=== PATIENT | male | born 1955 | race Caucasian/White ===

== ENCOUNTER 2021-02-07 11:15 | Inpatient (IN) | payer MEDICARE ==
[2021-02-07] VITALS (17 sets, daily range): BP systolic 73–96; BP diastolic 49–74
[~2021-02-07] VITALS: Ht 170.2 cm; Wt 89.4 kg
--- NOTE | ~2021-02-07 | HEMODYNAMI ---
PATIENT:COSTA ADAMS MEDICAL RECORD: [id number] : 57 LOCATION:[facility] [address] [id number] ADMISSION DATE: 02/07/21 Generatedon:110:23 Patient name: COSTA ADAMS Patient #: [id number] SSN: : 1955 Date of study: 02/11/2021 Page: Of Hemodynamic Procedure Report Patient Data Patient Demographics Procedure consent was obtained First Name: COSTA Gender: Male Last Name: ANGIE : 1955 Patient #: [id number] Age: 65 year(s) Race: Unknown Additional ID: [id number] Contact details Address: [address] [place] [address] State: [place] City: [place] Zip code: [address] Past Medical History History of disease Date Diagnosis Comments CAD Allergies: No known allergies Admission Admission Data Admission Date: 02/07/2021 Admission Time: 16:10 [facility] Lab Results Lab Result Date: 02/11/2021 Lab Result Time: 0:00 Biochemistry Name Units Result Min Max BUN mg/dl 12 --(-*--)-- 7 18 Creatinine mg/dl 1 --(--*-)-- 0.6 1.3 eGFR ml/min 79.80531 *-(----)-- 90 120 NONAFRICAN CBC Name Units Result Min Max Hematocrit % 34 *-(----)-- 42 54 Hemoglobin g/dl 11.6 *-(----)-- 13.5 17.5 Procedure Procedure Types Cath Procedure Diagnostic Procedure LHC LHC w/Coronaries w/Grafts Sedation Charges Moderate Sedation 10-24 minutes Procedure Description Procedure Date Procedure Date: 02/11/2021 Procedure Start Time: 10:07 Procedure End Time: 10:21 Procedure Staff Name Function Barrington Kwan MD Performing Physician Debbie Wilson RT Scrub Lou Ferrell RT Monitor Salima Galan RN Nurse Procedure Data Cath Procedure Fluoroscopy Diagnostic fluoroscopy Total fluoroscopy Time: 1.8 time: 1.8 min min Diagnostic fluoroscopy Total fluoroscopy dose: 405 dose: 405 mGy mGy Contrast Material Contrast Material Type Amount (ml) Isovue 300 59 Entry Location Entry Primary Successful Side Size Upsize Upsize Entry Closure Succes sful Closure Location (Fr) 1 (Fr) 2 (Fr) Remarks Device Remarks Femoral Left 5 Fr Exoseal artery Estimated blood loss: 10 ml Diagnostic catheters Device Type Used For End Catheter Placement MULTIPACK JL 4.0 5Fr Procedure catheter MULTIPACK 3DRC 5Fr Procedure catheter MULTIPACK Pigtail 5 Fr Procedure catheter Procedure Complications No complications Procedure Medications Medication Administration Route Dosage Oxygen etCO2 Nasal cannula 2 l/min Heparin Flush Bag added to field 2 bags (1000units/500ml NS) Lidocaine 2% added to field 20 0.9% NaCl I.V. 100 ml/hr Fentanyl I.V. 50 mcg Versed I.V. 1 mg Fentanyl I.V. 50 mcg Versed I.V. 1 mg Hemodynamics Rest HGB: 11.6 (g/dl) Heart Rate: 76 (bpm) Pressure Samples Time Site Value (mmHg) Purpose Heart Use Rate(bpm) 10:14 LV 110/21,10 Snapshot 108 10:14 LV 110/21,10 Snapshot 106 10:14 LV 117/18,10 Snapshot 83 Gradients Valve Time Site Site Mean SEP/DFP Peak To Heart Use 1 2 (mmHg) (sec/min) Peak Rate (mmHg) (bpm) Aortic 10:14 LV AO 85 Snapshots Pre Cath Intra NCS Post Cath Vital Signs Time Heart Resp SPO2 etCO2 NIBP Rhythm Pain Sedation Rate (ipm) (%) (mmHg) (mmHg) Status Level (bpm) 9:52:20 76 18 100 113/68(90) NSR 0 (11) 10(A) , No pain 9:56:29 78 14 98 106/60(82) NSR 0 (11) 10(A) , No pain 10:00:37 77 12 98 104/56(84) NSR 0 (11) 10(A) , No pain 10:04:43 77 11 98 32.1 116/61(83) NSR 0 (11) 9(A) , No pain 10:08:45 77 15 99 29.8 106/60(80) NSR 0 (11) 9(A) , No pain 10:12:53 77 13 96 19.4 113/57(70) NSR 0 (11) 9(A) , No pain 10:17:52 75 10 98 28.4 Measuring NSR 0 (11) 9(A) , No pain 10:17:58 77 10 98 31.4 105/55(84) NSR 0 (11) 9(A) , No pain 10:22:08 74 10 99 23.1 104/52(65) NSR 0 (11) 9(A) , No pain Medications Time Medication Route Dose Verified Delivered Reason Notes Eff ectiveness by by 9:51:58 Oxygen etCO2 2 Salima Salima for low 02 Nasal l/min Adama Galan sats cannula RN RN 9:52:05 Heparin Flush added 2 Salima Salima used for Bag to bags Adama Galan procedure (1000units/500ml RN RN NS) 9:52:13 Lidocaine 2% added 20ml Salima Barrington for local to vial [facility] Duncan Galan anesthetic field DAREN BERRY 9:52:24 0.9% NaCl I.V. 100 Salima Salima Per ml/hr Adama Galan, physician RN RN 10:02:30 Fentanyl I.V. 50 Salima Salima for mcg Adama Galan, sedation RN RN 10:02:35 Versed I.V. 1 mg Salima Salima for Galan, Galan, sedation RN RN 10:07:41 Fentanyl I.V. 50 Salima Salima for mcg Adama, Galan, sedation RN RN 10:07:45 Versed I.V. 1 mg Salima Salima for Adama, Galan, sedation RN ragman Log Time Note 9:31:21 Informed consent obtained and on chart 9:31:40 Lou Ferrell RT(R) sent for patient. Start room use. 9:31:42 Procedure Status Urgent Heart Cath (IP). 9:31:43 Time tracking: Regular hours (M-F 7:00 - 5:00) 9:31:46 Plan of Care:Hemodynamics will remain stable., Cardiac rhythm will remain stable., Comfort level will be maintained., Respiratory function will remain adequate., Patient/ family verbilizes understanding of procedure., Procedure tolerated without complication., Recovers from procedure without complications.. 9:51:04 Patient received from ICU to CCL 2 Alert and oriented. Tansferred to table in Supine position. 9:51:05 Warm blankets applied, and flavia hugger turned on for patient comfort. 9:51:05 Correct patient and procedure confirmed by team. 9:51:06 ECG and BP/O2 sat monitors applied to patient. 9:51:07 Vital chart was started 9:51:08 Baseline sample Acquired. 9:51:11 Rhythm: sinus rhythm 9:51:13 Full Disclosure recording started 9:51:19 H&P Date Dictated: 02/10/2021 ER History on chart.. 9:51:22 Family unavailable. 9:51:23 Pre-procedure instructions explained to patient. 9:51:23 Pre-op teaching completed and patient verbalized understanding. 9:51:27 Patient NPO since Midnight. 9:51:34 Patient allergic to No known allergies 9:51:36 Is the patient allergic to Iodine/contrast media? No. 9:51:37 Is patient on blood thinner?No 9:51:58 Oxygen 2 l/min etCO2 Nasal cannula was administered by Salima Galan RN; for low 02 sats; Verbal order read back and verified. 9:52:03 PT. WAS ON A HEPARIN DRIP. 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 9:52:06 Patient diabetic? Yes. 9:52:09 If diabetic: On Metformin? Yes 9:52:13 Lidocaine 2% 20ml vial added to field was administered by Barrington Kwan MD; for local anesthetic; Verbal order read back and verified. 9:52:13 Previous problem with sedation/anesthesia? No ? 9:52:14 Snore? Yes 9:52:15 Sleep apnea? Yes 9:52:16 Deviated septum? No 9:52:17 Opens mouth fully? Yes 9:52:19 Sticks out tongue? Yes 9:52:21 Airway obstruction? Yes COPD 9:52:24 0.9% NaCl 100 ml/hr I.V. was administered by Salima Galan RN; Per physician; Verbal order read back and verified. 9:52:25 Dentures? No ? 9:52:28 Pre procedure: left dorsailis pedis pulse 1+ Palpable, but thready & weak; easily obliterated 9:52:46 LEFT LEG PREPPED DUE TO URINARY CATHETER SET UP HIGH ON RIGHT GROIN 9:52:48 Patient pain scale 0/10 ?. 9:52:52 IV patent on arrival in left antecubital with 0.9% NaCl at O. 9:53:31 Lab Result : BUN 12 mg/dl 9:53:31 Lab Result : Creatinine 1 mg/dl 9:53:31 Lab Result : eGFR NONAFRICAN 79.02385 ml/min 9:53:31 Lab Result : Hemoglobin 11.6 g/dl 9:53:31 Lab Result : Hematocrit 34 % 9:53:34 Lab results completed and on chart. 9:53:39 Left groin area was prepped with chlora-prep and draped in sterile fashion 9:53:40 Alarms reviewed by R. N. 9:53:40 Sharps counted by scrub and verified by R.N. 9:53:42 Use device set Femoral Dx 9:53:43 ACIST Syringe (68461) opened to sterile field. 9:53:43 Bag Decanter (2002S) opened to sterile field. 9:54:27 ACIST Hand Control (37356) opened to sterile field. 9:54:28 ACIST Manifold (82441) opened to sterile field. 9:54:29 Tegaderm 4 x 4 (1626W) opened to sterile field. 9:56:55 Medline Cath Pack ([id number]) opened to sterile field. 9:56:56 DIAGNOSTIC Multipack 5Fr catheter set ([id number]) opened to sterile field. 9:56:56 SHEATH 5FR Fall Branch ([id number]) opened to sterile field. 9:56:57 EMERALD Guide Wire (538-606) opened to sterile field. 10:01:25 --------ALL STOP TIME OUT------ ::26 Final Timeout: patient, procedure, and site verified with staff and physician. All members of the team are in agreement. 10:01:28 Left groin site verified by team. 10:01:31 Fire Safety Assessment: A--An alcohol-based skin anteseptic being used preoperatively., C--Open oxygen or nitrous oxide is being used., D--An ESU, laser, or fiber-optic light is being used. 10:01:33 Physical assessment completed. ASA score P 3 - A patient with severe systemic disease as per Barrington Kwan MD. 10:01:43 2) 60-89 Mildly reduced kidney function, and other findings (as for stage 1) point to kidney disease. 10:01:44 Maximum allowable contrast dose (3.7 X eGFR X 0.75)222 ml. 10:01:47 Sedation plan: IV Moderate Sedation Medication:Versed, Fentanyl 10:02:30 Fentanyl 50 mcg I.V. was administered by Salima Galan RN; for sedation; Verbal order read back and verified. 10:02:35 Versed 1 mg I.V. was administered by Salima Galan RN; for sedation; Verbal order read back and verified. 10:06:26 Procedure started. 10:07:03 Local anesthetic to left femerol artery with Lidocaine 2% by Barrington Kwan MD.INITIAL ACCESS ONLY 10:07:41 Fentanyl 50 mcg I.V. was administered by Salima Galan RN; for sedation; Verbal order read back and verified. 10:07:45 Versed 1 mg I.V. was administered by Salima Galan RN; for sedation; Verbal order read back and verified. 10:08:00 A 5 Fr sheath was inserted into the Left Femoral artery 10:08:42 Zero performed for pressure channel P1 10:08:45 Zero performed for pressure channel P1 10:08:48 Zero performed for pressure channel P1 10:08:50 Zero performed for pressure channel P1 10:08:56 A MULTIPACK JL 4.0 5Fr catheter was advanced over the wire and used for Procedure. 10:09:07 Zero performed for pressure channel P1 10:10:14 LCA angiography performed. 10:10:19 Catheter removed. 10:10:25 A MULTIPACK 3DRC 5Fr catheter was advanced over the wire and used for Procedure. 10:13:10 RCA angiography performed. 10:13:12 Catheter removed. 10:13:13 ACCDominant side:Right 10:13:37 A MULTIPACK Pigtail 5 Fr catheter was advanced over the wire and used for Procedure. 10:14:11 LV gram done using ALVES 10:14:13 Injector settings: Ml/sec: 10, Volume: 20, 10:14:33 LV hemodynamics recorded. 10:14:39 EF : 55 % 10:14:40 Catheter removed. 10:14:41 EXOSEAL 5Fr (EX500) opened to sterile field. 10:14:55 Sheath removed intact; hemostasis achieved with Exoseal to the Left Femoral artery. 10:15:41 Procedure ended.(Physican Out) 10:16:05 Fluoroscopy time 01.80 minutes. 10:16:08 Fluoroscopy dose: 405 mGy 10:16:08 Flurop Dose total: 405 10:16:12 Dose Area Product 32924 mGy/cm. 10:16:23 Contrast amount:Isovue 300 59ml. 10:19:02 Maximum allowable dose exceeded? No. 10:19:08 Sharps counted by scrub and verified by R.N. 10:19:14 Post-op/insertion site Left Femoral artery dressed using a 4 x 4 and Tegaderm. 10:19:23 Post-procedure physical assessment completed. ASA score P 3 - A patient with severe systemic disease as per Barrington Kwan MD. 10:19:30 Post procedure rhythm: sinus rhythm 10:19:34 Estimated blood loss: 10 ml 10:19:35 Post procedure instruction explained to patient.Patient verbalizes understanding. 10:19:36 Patient needs reinforcement of post procedure teaching. 10:19:57 Procedure type changed to Cath procedure, Diagnostic procedure, LHC, LHC w/Coronaries w/Grafts, Sedation Charges, Moderate Sedation 10-24 minutes 10:21:16 Procedure and supply charges have been captured, reviewed, submitted and are correct. 10:21:19 Procedure Complication : No complications 10:21:21 Vital chart was stopped 10:21:32 [facility] Findings: MVD- CABG consult 10:21:34 Operative report dictated upon procedure completion. 10:21:34 See physician's report for complete and final results. 10:21:37 Report given to ICU. 10:21:40 Patient transfered to ICU with Bed. 10:21:42 Procedure ended. 10:21:42 Full Disclosure recording stopped 10:21:48 End room use (Document Last) 10:23:07 Procedure ended.(Physican Out) Device Usage Item Name Manufacture Quantity Catalog Hospital Part Current Minimal L ot# / Number Charge Number Stock Stock Serial# Code ACIST Acist 1 30488 537018 [id number] 20 Syringe Medical (66611) Systems Inc Bag Microtek 1 2001S 887680 95886 868134 5 Decanter Medical Inc. () ACIST Hand Acist 1 88201 676818 970458 128828 5 Control Medical (85719) Systems Inc ACIST Acist 1 97549 134705 051193 089826 5 Manifold Medical (99843) Systems Inc Tegaderm 4 3M 1 1626W 636766 323734 301141 5 x 4 (1626W) Medline Medline 1 [id number] 563039 92328 907728 5 Cath Pack ([id number]) DIAGNOSTIC Cardinal 1 AN4199 192274 11603 116034 30 Multipack CoolIT Systems 5Fr catheter set (KN2909) SHEATH 5FR Terumo 1 DAS095 911468 317080 745834 5 Fall Branch (TNR657) EMERALD Cardinal 1 502-455 313054 531010 606634 5 Guide Wire [facility] (502455) MULTIPACK Cardinal 1 140240 5 JL 4.0 5Fr Health catheter MULTIPACK Cardinal 1 [id number] 5 3DRC 5Fr Health catheter MULTIPACK Cardinal 1 519224 5 Pigtail 5 Health Fr catheter EXOSEAL 5Fr Cardinal 1 EX500 580694 213242 244068 10 (EX500) Health Signature Audit [place] Stage Time Signature Unsigned Intra-Procedure 02/11/2021 Lou Ferrell 10:22:42 AM RT(R) Intra-Procedure 02/11/2021 Salima Galan, 10:23:07 AM RN Intra-Procedure 02/11/2021 Barrington Soriano 10:23:34 AM Duncan BERRY Signatures Performing Physician : Signature : Barrington Kwan MD Date : Time : Monitor : Lou Ferrell Signature : RT Date : Time : Nurse : Salima Galan, Signature : RN Date : Time : [place] [address] [place] [address]
--- NOTE | ~2021-02-07 | HEMODYNAMI ---
PATIENT:COSTA ADAMS MEDICAL RECORD: [id number] : 57 LOCATION:[facility] [address] [place], [place] [address]T# [id number] ADMISSION DATE: 02/07/21 Generatedon:111:57 Patient name: COSTA ADAMS Patient #: [id number] SSN: : 1955 Date of study: 02/13/2021 Page: Of Hemodynamic Procedure Report Patient Data Patient Demographics Procedure consent was obtained First Name: COSTA Gender: Male Last Name: ANGIE : 1955 Patient #: [id number] Age: 65 year(s) Race: Unknown Additional ID: [id number] Contact details Address: [address] [place] [address] State: [place] City: [place] Zip code: [address] Past Medical History History of disease Date Diagnosis Comments CAD Allergies: No known allergies Admission Admission Data Admission Date: 02/07/2021 Admission Time: 16:10 [facility] Height (in.): 67 BSA: 2.01 (m2) Height (cm.): 170.18 BMI: 30.85 (kg/m2) Weight (lbs.): 197 Weight (kg.): 89.36 Lab Results Lab Result Date: 02/11/2021 Lab Result Time: 0:00 Biochemistry Name Units Result Min Max BUN mg/dl 12 --(-*--)-- 7 18 Creatinine mg/dl 1 --(--*-)-- 0.6 1.3 eGFR ml/min 79.71008 *-(----)-- 90 120 NONAFRICAN CBC Name Units Result Min Max Hematocrit % 34 *-(----)-- 42 54 Hemoglobin g/dl 11.6 *-(----)-- 13.5 17.5 Procedure Procedure Types Cath Procedure Peripheral Cath Diagnostic Procedure 4-Vessel 4 Vessel Carotid Arterio Arch Procedure Description Procedure Date Procedure Date: 02/13/2021 Procedure Start Time: 11:15 Procedure Staff Name Function Duncan Chatman MD Performing Physician Krupa Weldon RT Chemical Maker Jacki Barrios RN Nurse Savage Le RT Scrub Ashley Calloway RN Nurse Procedure Data Cath Procedure Fluoroscopy Diagnostic fluoroscopy Total fluoroscopy Time: 1.8 time: 1.8 min min Diagnostic fluoroscopy Total fluoroscopy dose: 130 dose: 130 mGy mGy Contrast Material Contrast Material Type Amount (ml) Isovue 300 130 Entry Location Entry Primary Successful Side Size Upsize Upsize Entry Closure Succ essful Closure Location (Fr) 1 (Fr) 2 (Fr) Remarks Device Remarks Femoral Right 5 Fr artery Femoral Angio-VIP artery 6Fr Diagnostic catheters Device Type Used For End Catheter Placement Merit ULTRA BOLUS FLUSH 5Fr 90CM catheter ([id number]) Merit UHF Pigtail VESSEL SIZING 5Fr 65CM catheter ([id number]) Procedure Medications Medication Administration Route Dosage Heparin Flush Bag added to field 3 bags (1000units/500ml NS) Lidocaine 1% added to field 20 Versed I.V. 1 mg Fentanyl I.V. 50 mcg Heparin Bolus I.V. 5000 units Hemodynamics Rest BSA: 2.01 (m2) HGB: 11.6 (g/dl) O2 Consumption: Estimated: 252.93 (ml/min) O2 Co nsumption indexed: Estimated:125.84 (ml/min/m) Heart Rate: 94 (bpm) Snapshots Pre Cath Intra NCS Post Cath Vital Signs Time Heart Resp SPO2 etCO2 NIBP (mmHg) Rhythm Pain Sedation Rate (ipm) (%) (mmHg) Status Level (bpm) 10:44:07 97 21 100 18.8 95/62(73) NSR 0 (11) 10(A) , No pain 10:48:13 128 15 99 0 75/62(65) NSR 0 (11) 10(A) , No pain 10:52:25 93 24 99 22.6 105/63(86) NSR 0 (11) 10(A) , No pain 10:56:31 86 23 98 22.6 99/60(77) NSR 0 (11) 10(A) , No pain 11:00:33 88 23 98 22.6 104/56(74) NSR 0 (11) 10(A) , No pain 11:04:34 89 20 99 17.3 92/71(89) NSR 0 (11) 10(A) , No pain 11:09:33 102 22 98 24.1 Measuring NSR 0 (11) 10(A) , No pain 11:09:51 97 23 98 24.1 98/66(80) NSR 0 (11) 10(A) , No pain 11:13:59 94 13 99 19.6 76/45(66) NSR 0 (11) 10(A) , No pain 11:18:59 91 23 98 21.8 Measuring NSR 0 (11) 10(A) , No pain 11:19:54 91 23 98 22.6 85/61(76) NSR 0 (11) 10(A) , No pain 11:23:51 95 22 96 24.8 96/61(77) NSR 0 (11) 10(A) , No pain 11:27:53 103 16 98 30.9 98/62(70) NSR 0 (11) 10(A) , No pain 11:31:57 99 8 99 30.1 93/57(67) NSR 0 (11) 10(A) , No pain 11:35:56 103 17 98 27.1 73/61(63) NSR 0 (11) 10(A) , No pain 11:40:15 109 21 98 16.5 122/99(105) NSR 0 (11) 10(A) , No pain 11:42:13 96 21 98 24.1 112/63(80) NSR 0 (11) 10(A) , No pain 11:47:08 101 22 96 23.3 98/67(79) NSR 0 (11) 10(A) , No pain 11:51:12 98 22 96 24.1 110/61(77) NSR 0 (11) 10(A) , No pain 11:55:26 98 16 98 27.1 95/56(83) NSR 0 (11) 10(A) , No pain Medications Time Medication Route Dose Verified Delivered Reason Notes Effe ctiveness by by 11:12:42 Heparin Flush added 3 Duncan Song used for Bag to bags Compa Chatman MD procedure (1000units/500ml field BERRY NS) 11:12:55 Lidocaine 1% added 20ml Duncan Song for local to vial Compa Chatman MD anesthetic field 11:23:04 Versed I.V. 1 mg Duncan Ramirez for Brodie Chatman RN sedation 11:23:15 Fentanyl I.V. 50 Duncan Ramirez for mcg Brodie Chatman RN sedation 11:23:57 Heparin Bolus I.V. 5000 Duncan Ramirez Per units Brodie Chatman RN physician MD Procedure Log Time Note 9:58:33 Patient Height : 67 inches 9:58:39 Patient Weight : 197 lbs 9:59:07 Use device set IR Diagnostic 10:00:10 GLIDE WIRE ANGLE 260cm (XR6891) opened to sterile field. 10:00:11 SHEATH 5FR Stuart (CQJ254) opened to sterile field. 10:00:12 TUBING Contrast Injection High Pressure (ZAN906Y) opened to sterile field. 10:00:14 SZYMANSKI 260 wire (C18502) opened to sterile field. 10:00:16 DOUBLE ENDED GUIEDWIRE DOC 145CM (D81339) opened to sterile field. 10:00:17 Micropuncture VSI 4FR kit opened to sterile field. 10:00:18 Tegaderm 4 x 4 (1626W) opened to sterile field. 10:00:19 Sterile Angiographic Pack opened to sterile field. 10:00:21 Bag Decanter (2002S) opened to sterile field. 10:00:22 ACIST Manifold (13362) opened to sterile field. 10:00:22 ACIST Hand Control (71036) opened to sterile field. 10:00:23 ACIST Syringe (70782) opened to sterile field. 10:00:28 - 10:42:46 Vital chart was started 10:42:53 Baseline sample Acquired. 10:44:19 Time tracking: Regular hours (M-F 7:00 - 5:00) 10:44:48 Plan of Care:Hemodynamics will remain stable., Cardiac rhythm will remain stable., Comfort level will be maintained., Respiratory function will remain adequate., Patient/ family verbilizes understanding of procedure., Procedure tolerated without complication., Recovers from procedure without complications.. 10:44:56 Patient received from Med/Surg to IR Alert and oriented. Tansferred to table in Supine position. 10:45:01 Signed procedure consent form obtained from patient. 10:45:08 H&P Date Dictated: 02/13/2021 Within 30 days and on chart.. 10:45:10 Pre-procedure instructions explained to patient. 10:45:10 Pre-op teaching completed and patient verbalized understanding. 10:45:13 Family in patients room. 10:45:15 Patient NPO since Midnight. 10:46:01 Patient allergic to No known allergies 10:46:04 Is the patient allergic to Iodine/contrast media? No. 10:47:10 Is patient on blood thinner?No 10:47:17 Patient diabetic? Yes. 10:47:22 If diabetic: On Metformin? Yes 10:47:31 If on Metformin: Last Dose? 02/08/2021 10:47:35 - 10:47:36 ----Pre-sedation anethsthesia assessment.---- 10:47:41 Previous problem with sedation/anesthesia? No ? 10:47:53 Snore? Yes 10:47:54 Sleep apnea? Yes 10:47:58 Deviated septum? No 10:48:03 Opens mouth fully? Yes 10:48:31 Sticks out tongue? Yes 10:48:40 Airway obstruction? Yes cad 10:48:43 Dentures? No ? 10:49:01 Right groin area was prepped with chlora-prep and draped in sterile fashion 10:49:03 Alarms reviewed by Adriane Moreno 10:49:06 - 10:49:13 Fire Safety Assessment: A--An alcohol-based skin anteseptic being used preoperatively., C--Open oxygen or nitrous oxide is being used. 10:49:39 A [email or web address] ULTRA BOLUS FLUSH 5Fr 90CM catheter ([id number]) was advanced over the wire and used for . 10:50:07 2) 60-89 Mildly reduced kidney function, and other findings (as for stage 1) point to kidney disease. 10:50:28 Full Disclosure recording started 10:50:29 - 11:12:42 Heparin Flush Bag (1000units/500ml NS) 3 bags added to field was administered by Duncan Chatman MD; used for procedure; Verbal order read back and verified. 11:12:55 Lidocaine 1% 20ml vial added to field was administered by Duncan Chatman MD; for local anesthetic; Verbal order read back and verified. 11:14:09 Physician arrived 11:14:10 --------ALL STOP TIME OUT------ 11:14:10 Final Timeout: patient, procedure, and site verified with staff and physician. All members of the team are in agreement. 11:15:39 Procedure started. 11:15:43 Local anesthetic to right femoral artery with Lidocaine 1% by Duncan Chatman MD.INITIAL ACCESS ONLY 11:23:04 Versed 1 mg I.V. was administered by Ashley Calloway RN; for sedation; Verbal order read back and verified. 11:23:15 Fentanyl 50 mcg I.V. was administered by Ashley Calloway RN; for sedation ; Verbal order read back and verified. 11:23:35 AMPLATZ Super Stiff 75cm wire ([id number]) opened to sterile field. 11:23:57 Heparin Bolus 5000 units I.V. was administered by Ashley Calloway RN; Per physician; Verbal order read back and verified. 11:24:12 A [email or web address] UHF Pigtail VESSEL SIZING 5Fr 65CM catheter ([id number]) was advanced over the wire and used for . 11:24:17 Arterial access obtained using ultrasound guidance. 11:24:32 A 5 Fr sheath was inserted into the Right Femoral artery 11:49:12 ANGIOSEAL-VIP PLUS 6 FR opened to sterile field. 11:49:30 A sheath was inserted into the Femoral artery 11:49:30 Sheath removed intact; hemostasis achieved with Angio-VIP 6Fr to the Femoral artery. 11:51:44 Procedure ended.(Physican Out) 11:52:26 Fluoroscopy time 01.80 minutes. 11:53:14 Fluoroscopy dose: 130 mGy 11:53:14 Flurop Dose total: 130 11:53:19 Contrast amount:Isovue 300 130ml. 11:53:21 Procedure and supply charges have been captured, reviewed, submitted an d are correct. 11:54:24 Report given to Med/Surg. 11:57:21 Vital chart was stopped Device Usage Item Name Manufacture Quantity Catalog Number Hospital Part [facility] Lot# / Charge Number Stock Stock Serial# Code GLIDE WIRE Terumo 1 [id number] [id number] 599891 5 ANGLE 260cm (LE8324) SHEATH 5FR Terumo 1 [id number] 267293 486968 901648 5 Stuart (UJU910) TUBING Merit 1 [id number] 298204 114453 329823 5 Contrast Medical Injection High Pressure ([id number]) SZYMANSKI 260 wire Cook Medical 1 B35709 411828 056942 025191 5 (Y35040) DOUBLE ENDED Cook Medical 1 R51100 531154 300452 1 GUIEDWIRE DOC 145CM (T64213) Micropuncture VSI VASCULAR 1 7266V 145657 140855 5 VSI 4FR kit SOLUTIONS Tegaderm 4 x 4 3M 1 1626W 232786 636691 394730 5 (1626W) Sterile Cardinal 1 [id number] 756291 497305 5 Angiographic Health Pack Bag Decanter Microtek 1 421233 31625 415527 5 () Medical Inc. ACIST Manifold Acist 1 70659 718282 340288 604478 5 (12426) Medical Systems Inc ACIST Hand Acist 1 73927 974492 624378 899568 5 Control Medical (73346) Systems Inc ACIST Syringe Acist 1 83179 397947 383271 895467 20 (16945) Medical Systems Inc Merit ULTRA Merit 1 [id number] 117105 509400 5 BOLUS FLUSH Medical 5Fr 90CM catheter ([id number]) AMPLATZ Super [place] 1 [id number] 228832 646340 090959 5 Stiff 75cm Scientific wire ([id number]) Merit F Merit 1 [id number] 241668 684435 5 Pigtail VESSEL Medical SIZING 5Fr 65CM catheter ([id number]) ANGIOSEAL-VIP St Will 1 978637 889569 621148 741072 5 PLUS 6 FR Signature Audit Mineral Stage Time Signature Unsigned Intra-Procedure 02/13/2021 Krupa Weldon 11:57:17 AM RT(R) [facility] [address] [place] [address]
[2021-02-07 11:46] LABS: APTT 31.4 SECONDS (22.8-39.4); CALC OSMOLALITY 276 mosm/kg (275-300); CALCIUM 9.4 mg/dL (8.5-10.1); CARBON DIOXIDE 24.2 mmol/L (21.0-32.0); CHLORIDE - SERUM 96 mmol/L (98-107); CREATININE - SERUM 1.3 mg/dL (0.6-1.3); GLUCOSE 166 mg/dL (74-106); INR 1.03 (0.85-1.17); POTASSIUM - SERUM 3.9 mmol/L (3.5-5.1); PROTIME 12.4 SECONDS (11.6-15.0); SODIUM 133 mmol/L (136-145); UREA NITROGEN 31 mg/dL (7-18); eGFR NON AFRICAN AMERICAN 59 mL/min (90-120)
[2021-02-07 11:48] LABS: D-DIMER-QUANTITATIVE 1.68 ug/mLFEU (0.20-0.54)
[2021-02-07 12:03] LABS: ALBUMIN 3.3 g/dL (3.4-5.0); ALKALINE PHOSPHATASE 127 U/L (30-120); ALT (SGPT) 16 U/L (10-68); AMYLASE - SERUM 130 U/L (25-115); BILIRUBIN - TOTAL 0.18 mg/dL (0.2-1.3); CKMB 1.7 U/L (0.0-3.6); CREATINE KINASE 55 UL (21-232); LIPASE 402 U/L (73-393); MAGNESIUM - SERUM 2.3 mg/dL (1.8-2.4); PRO BNP 616 pg/mL (0-125); PROTEIN - SERUM 8.1 g/dL (6.4-8.2); TROPONIN-I < 0.017 ng/mL (0.000-0.060)
[2021-02-07 12:08] LABS: BASOPHILS 0.3 % (0-2); EOSINOPHILS 1.2 % (0-7); HEMATOCRIT 40.3 % (42.0-54.0); IMMATURE GRANULOCYTES 0.2 % (0-5); LYMPHOCYTE ABS# 2.37 10x3/uL (1.32-3.57); LYMPHOCYTES 24.4 % (15-50); MCH 31.3 pg (26.0-34.0); MCHC 34.7 g/dL (31.0-37.0); MEAN PLATELET VOLUME 10.1 fL (7.4-10.4); MONOCYTES 8.9 % (2-11); NEUTROPHIL ABS# 6.32 10x3/uL (1.78-5.38); PLATELET COUNT 343 10x3/uL (130-400); RBC 4.48 10x6/uL (4.20-6.10); RDW 13.9 % (11.5-14.5); WBC 9.7 10x3/uL (4.8-10.8)
[2021-02-07 13:43] LABS: BACTERIA FEW HPF (NONE SEEN); BILIRUBIN NEGATIVE (NEGATIVE); KETONE NEGATIVE (NEGATIVE); NITRITE NEGATIVE (NEGATIVE); SQUAMOUS EPITHELIAL RARE HPF (0-4); UROBILINOGEN NORMAL mg/dL (< 2); WHITE CELLS - URINE OCC HPF (0-1)
--- NOTE | 2021-02-07 15:09 | NUR ---
16 [place]OWN CATH PLACED PER ORDERS OF DR. SCHUMACHER. PATIENT TOLERATED WELL. CLEAR, YELLOW URINE RETURNED AT THIS TIME.
--- NOTE | 2021-02-07 18:19 | NUR ---
RECEIVED FROM ER AND PUT TO BED SAFELY, HOOKED TO MONITORS.
[2021-02-07] MEDS ORDERED: GLUCOPHAGE1000 MG PO (18:20)
[2021-02-07] MEDS ORDERED: MAG-OX 400 MG400 MG PO (20:15)
--- NOTE | 2021-02-07 21:00 | NUR ---
Spoke to son and gave update on patient's status.
[2021-02-08] VITALS (78 sets, daily range): BP systolic 72–109; BP diastolic 34–87; BMI 21.4
--- NOTE | 2021-02-08 | NUR ---
Patient stated that he would prefer to go home with home health.
[2021-02-08 03:55] LABS: BASOPHILS 0.3 % (0-2); EOSINOPHILS 1.2 % (0-7); HEMATOCRIT 38.6 % (42.0-54.0); HEMOGLOBIN 13.3 g/dL (13.5-17.5); IMMATURE GRANULOCYTES 0.4 % (0-5); LYMPHOCYTE ABS# 3.14 10x3/uL (1.32-3.57); LYMPHOCYTES 22.3 % (15-50); MCH 30.5 pg (26.0-34.0); MCHC 34.5 g/dL (31.0-37.0); MCV 88.5 fL (80.0-100.0); MEAN PLATELET VOLUME 9.8 fL (7.4-10.4); MONOCYTES 10.5 % (2-11); NEUTROPHIL ABS# 9.21 10x3/uL (1.78-5.38); NEUTROPHILS 65.3 % (40-80); PLATELET COUNT 354 10x3/uL (130-400); RBC 4.36 10x6/uL (4.20-6.10); RDW 13.8 % (11.5-14.5)
[2021-02-08 03:56] LABS: WBC 14.1 10x3/uL (4.8-10.8)
[2021-02-08 04:15] LABS: ALBUMIN 2.9 g/dL (3.4-5.0); ANION GAP 16.2 mmol/L (8-16); BILIRUBIN - TOTAL 0.18 mg/dL (0.2-1.3); CALCIUM 8.6 mg/dL (8.5-10.1); CARBON DIOXIDE 21.8 mmol/L (21.0-32.0); CREATININE - SERUM 1.1 mg/dL (0.6-1.3); MAGNESIUM - SERUM 1.8 mg/dL (1.8-2.4); PROTEIN - SERUM 7.5 g/dL (6.4-8.2)
--- NOTE | 2021-02-08 06:40 | NUR ---
Patient has had a full CHG bath and hair has been washed.
--- NOTE | 2021-02-08 08:10 | NUR ---
ATE 100% BREAKFAST GIVEN SPRITE PER REQUEST.
--- NOTE | 2021-02-08 09:50 | NUR ---
FSBS 270, NAD, AWAKE ALERT AND ORIENTED X 3. DENIES NEEDS OR COMPLAINTS AT THIS TIME.
--- NOTE | 2021-02-08 10:53 | NUR ---
450ML URINE EMPTIED FROM BROWN CATHETER. REPORTS PERSISTENT THIRST. PHYSICAL THERAPY REQUESTING TO MOVE TO CHAIR. NOTIFIED THAT BP IS TRENDING DOWN AND HE IS NOT STABLE FOR OOB ACTIVITY. SEE VITALS CHRATING. LEVOPHED DRIP TITRATED TO PATIENT RESPONSE. UP TO 10MCG/MIN AT THIS TIME. NAD. ASYMPTOMATIC OF HYPOTENSION. CHAIR BROUGHT TO ROOM, WILL MOVE OOB TO CHAIR WHEN BP STABLE. UPON LEAVING, STAFF ENTERING ROOM TO PERFORM ECHOCARDIOGRAM. DENIES NEEDS.
--- NOTE | 2021-02-08 11:43 | NUR ---
FSBS 259. PATIENT SITTING UP EATING LUNCH TRAY. STATES "THATS PRETTY GOOD CONSIDERING IT WAS 800 LAST WEEK". EDUCATED ON IMPORTANCE OF GLUCOSE CONTROL. BP TRENDING UP WITH LEVOPHED AT 10MCG/MIN. SBP 90S. NAD. ALERT AND ORIENTED X 3, AT 95% OF LUNCH TRAY.
--- NOTE | 2021-02-08 11:59 | NUR ---
PATIENT SITTING UP, FINISHED LUNCH TRAY. SBP 90S, MONITORING IN LINE OF SIGHT. DENIES NEEDS.
--- NOTE | 2021-02-08 12:26 | NUR ---
20G PERIPHERAL IV STARTED TO RIGHT FA PER PROTOCOL PATIENT TOLERATED WELL. PER REQUEST OF CT FOR ORDERED IMAGING.
--- NOTE | 2021-02-08 12:28 | NUR ---
CT NOTIFIED THAT PATIENT IS READY FOR TRANSPORT TO IMAGING. STATES THAT SHE HAS ER PATIENT ON TABLE BUT SHE WILL CALL WHEN SHE IS READY.
--- NOTE | 2021-02-08 12:36 | NUR ---
PATIENT UNCOOPERATIVE WITH BP CUFF. UNABLE TO OBTAIN CORRECT READING DUE TO PATIENT MOVING CUFF AND PATIENT POSITION IN BED. PATIENT EDUCATED ON PURPOSE OF BP CUFF AND CARE PLAN. PATIENT STATES HE NEEDS NICOTINE. PATIENT IS NOT HOSTILE IN ANY WAY, BUT PERSISTENTLY UNCOOPERATIVE WITH BP CUFF AND VITALS MACHINE.
--- NOTE | 2021-02-08 13:01 | NUR ---
PATIENT ESCORTED TO CT AT 1242 ON LEVOPHED DRIP, TOLERATED TRANSFER AND IMAGING WELL, NAD. RETURNED TO ROOM AT 1302, PATIENT VITALS STABLE. WILL CONTINUE TO MONITOR. DENIES NEEDS AT THIS TIME.
--- NOTE | 2021-02-08 13:03 | NUR ---
OT NOTE: ATTEMPTED TO PERFORM OT EVAL THIS AM, HOWEVER, BP RUNNING VERY LOW. NURSING REPORTS THAT SHE WILL WORK ON PTS BP..WILL RE ATTEMPT LATER. THANK YOU FOR REFERAL WILIAN ARRIAZA, OTR/L
--- NOTE | 2021-02-08 13:41 | NUR ---
PATIENT SITTING UP IN BED, ALERT AND ORIENTED X 3, TALKING ON PHONE, NAD.
--- NOTE | 2021-02-08 14:12 | NUR ---
SPOKE TO PATIENT SON, COSTA ADAMS, WITH PATIENT PERMISSION. NOTIFIED OF STATUS, IMAGING RESULTS AND UPDATED CARE PLAN. STATES THAT LEFT CAROTID HAS BEEN OBSTRUCTED FOR 10 YEARS SINCE HIS CABG. SON NOTIFIED OF VISITORS POLICY. VERBALIZES THANKS FOR PATIENT UPDATE.
--- NOTE | 2021-02-08 14:32 | NUR ---
FROM START OF SHIFT 0700 TO 1430 PATIENT HAS CONSUMED 960ML WATER, 120ML DIET SPRITE.
--- NOTE | 2021-02-08 15:54 | NUR ---
PATIENT DAUGHTER IN LAW AT BEDSIDE, BROUGHT PATIENT SONIC FOOD AND DRINK. PATIENT ALERT, ORIENTED X 3, HAPPY, SMILING TALKING ON THE PHONE. DAUGHTER IN LAW REQUESTED TO SPEAK WITH ME PRIVATELY IN THE HALLWAY. STATES THAT THE PATIENT HAS A FEMALE CUSTOMER SUPPORT ADVISOR THAT "AINT NOTHING BUT A WORTHLESS CRACKHEAD THAT WANTS HIS MONEY" AND STATES THAT HER WILL BE FIGHTING CUSSING MAD IF SHE COMES UP HERE. DAUGHTER IN LAW NOTIFIED THAT THE PATIENT HAS THE FINAL DECISION ON WHO CAN SEE HIM AND STAY WITH HIM. DAUGHTER IN LAW NOTIFIED THAT THE ICU HOLDS AUTHORITY TO REMOVE VISITORS THAT ARE HINDERING PATIENT CARE OR THAT ARE THREATENING/VIOLENT. PATIENT AND DAUGHTER IN LAW NOTIFIED THAT ANY PERSON THAT ENTERS THE ER AND BECOMES HOSTILE OR VIOLENT OR IMPEDES CARE WILL BE IMMEDIATELY REMOVED NO MATTER RELATION OR PATIENT/FAMILY REQUEST. ALL PARTIES VERBALIZED UNDERSTANDING.
--- NOTE | 2021-02-08 17:14 | EC ---
PATIENT:COSTA ADAMS DATE OF SERVICE: 02/07/21 SEX: M MEDICAL RECORD: [id number] DATE OF : 57 LOCATION:[place] [address] AGE OF PATIENT: 65 ADMISSION DATE: 02/07/21 REFERRING PHYSICIAN: INTERPRETING PHYSICIAN: CAMILLA CLEMENT MD ECHOCARDIOGRAM REPORT ECHO CHARGES 4 ECHO COMPLETE Date: 02/08/21 CLINICAL DIAGNOSIS: SYNCOPE ECHOCARDIOGRAPHIC MEASUREMENTS (adult normal given) AC root (d.<3.7cm) 3.2 cm LV Septum d (<1.2 cm> 0.9 cm Valve Excursion 1.7 cm LV Septum (systole) 1.2 cm Left Atria (s.<4.0cm> 4.1 cm LVPW d(<1.2cm) 0.8 cm RV (d.<2.3cm) 3.5 cm LVPW (sytole) 1.2 cm LV diastole(<5.6CM) 4.1 cm MV E-F(>70mm/sec) cm LV systole 2.7 cm LVOT Diameter 1.7 cm MV exc.(>10mm) 1.3 cm Est.ejection fraction (50-75%) % DOPPLER: LVIT cm/sec A 54 cm/sec E 61 cm/sec LA cm/sec RVSP 17 mmHg LVOT 101 cm/sec AOP1/2T m/s Asc. Ao 112 cm/sec RVOT 49 cm/sec RA cm/sec PA 66 cm/sec AV Gradient Peak 5.0 mmHg AV Mean 2.3 mmHg AV Area 2.2 cm MV Gradient Peak 2.9 mmHg MV Mean 1.5 mmHg MV Area cm COMMENTS: Outlet Manager: John HILL Chucking Machine Set Up Operator Tool: 3 Dr. Fu TAPE# Pericardial Effusion N DATE OF SERVICE: Adequate 2D, color-flow imaging, spectral Doppler, and M-Mode FINDINGS: No LVH. LV internal dimensions are normal. Wall motion is normal. EF is greater than or equal to 55%. Aortic valve is tricuspid. No evidence of stenosis by Doppler interrogation. Left atrium is upper limits of normal to mildly dilated at 4.1 cm. Mitral valve shows no prolapse. Trace MR. Right side is grossly normal. Trace TR. ECHOCARDIOGRAM REPORT [id number] COSTA ADAMS TRANSINT:[id number] Voice Confirmation ID: [id number] DOCUMENT ID: [id number] CAMILLA CLEMENT MD at 1714 CC: [id number] DICTATION DATE: 02/08/21 1230 CONSTRUCTION PROJECT ADMINISTRATOR: 02/08/21 1340 ADM IN [facility] [address] [place] [id number]
--- NOTE | 2021-02-08 17:42 | NUR ---
PATIENT RESTING WITH EYES CLOSED, RESPIRATIONS EVEN AND UNLABORED. DINNER TRAY PLACED AT BEDSIDE. NAD.
[2021-02-09] VITALS (85 sets, daily range): BP systolic 62–121; BP diastolic 40–92
[2021-02-09 04:29] LABS: BASOPHILS 0.3 % (0-2); EOSINOPHILS 1.7 % (0-7); HEMATOCRIT 37.9 % (42.0-54.0); HEMOGLOBIN 13.1 g/dL (13.5-17.5); IMMATURE GRANULOCYTES 0.4 % (0-5); LYMPHOCYTES 23.4 % (15-50); MCH 30.7 pg (26.0-34.0); MCHC 34.6 g/dL (31.0-37.0); MCV 88.8 fL (80.0-100.0); MEAN PLATELET VOLUME 9.6 fL (7.4-10.4); MONOCYTES 10.5 % (2-11); NEUTROPHIL ABS# 7.61 10x3/uL (1.78-5.38); NEUTROPHILS 63.7 % (40-80); PLATELET COUNT 340 10x3/uL (130-400); RBC 4.27 10x6/uL (4.20-6.10)
[2021-02-09 04:45] LABS: ALBUMIN 2.7 g/dL (3.4-5.0); ALKALINE PHOSPHATASE 108 U/L (30-120); ALT (SGPT) 17 U/L (10-68); BILIRUBIN - TOTAL 0.18 mg/dL (0.2-1.3); CALC OSMOLALITY 276 mosm/kg (275-300); CALCIUM 8.5 mg/dL (8.5-10.1); CARBON DIOXIDE 21.2 mmol/L (21.0-32.0); CHLORIDE - SERUM 103 mmol/L (98-107); CREATININE - SERUM 0.9 mg/dL (0.6-1.3); GLUCOSE 231 mg/dL (74-106); MAGNESIUM - SERUM 1.6 mg/dL (1.8-2.4); POTASSIUM - SERUM 3.8 mmol/L (3.5-5.1); PROTEIN - SERUM 7.2 g/dL (6.4-8.2); SODIUM 134 mmol/L (136-145); UREA NITROGEN 17 mg/dL (7-18); eGFR NON AFRICAN AMERICAN 90 mL/min (90-120)
--- NOTE | 2021-02-09 06:49 | NUR ---
Patient received full bath and shampoo. Patient tolerated levo at 5.5mcg most of the night until now. titrated up slowly to 7mcg . will continue to monitor.
--- NOTE | 2021-02-09 08:00 | NUR ---
SITTING UP IN BED. RR EVEN AND UNLABORED ON RA. DENIES NEEDS OR PAIN AT THIS TIME. CALL LIGHT WITHIN REACH. BED IN LOWEST POSITION. BEDSIDE SHIFT REPORT RECIEVED. CARE OF PT ASSUMED. SEE FLOWSHEET FOR ASSESSMENT DETAILS.
--- NOTE | 2021-02-09 10:16 | NUR ---
PT ASSISTED UP TO CHAIR PER REQUEST. MINIMAL ASSISTANCE NEEDED. CALL LIGHT WITHIN REACH. DENIES NEEDS OR PAIN AT THIS TIME.
[2021-02-09 11:20] LABS: HEMATOCRIT 37.3 % (42.0-54.0); HEMOGLOBIN 12.9 g/dL (13.5-17.5); MCH 30.7 pg (26.0-34.0); MCHC 34.6 g/dL (31.0-37.0); MCV 88.8 fL (80.0-100.0); MEAN PLATELET VOLUME 9.6 fL (7.4-10.4); RBC 4.2 10x6/uL (4.20-6.10); RDW 13.9 % (11.5-14.5); WBC 12.6 10x3/uL (4.8-10.8)
[2021-02-09 11:29] LABS: APTT 36.2 SECONDS (22.8-39.4); INR 1.05 (0.85-1.17); PROTIME 12.7 SECONDS (11.6-15.0)
--- NOTE | 2021-02-09 18:14 | NUR ---
I have reviewed this patient and I concur with the Shift Assessment completed by the Licensed Practical Nurse today this shift.
[2021-02-10] VITALS (52 sets, daily range): BP systolic 70–162; BP diastolic 8–105; Ht 170.2 cm; Wt 89.4 kg
[2021-02-10 04:08] LABS: BASOPHILS 0.5 % (0-2); EOSINOPHILS 2.3 % (0-7); HEMATOCRIT 36.1 % (42.0-54.0); HEMOGLOBIN 12.3 g/dL (13.5-17.5); IMMATURE GRANULOCYTES 0.3 % (0-5); LYMPHOCYTE ABS# 2.76 10x3/uL (1.32-3.57); LYMPHOCYTES 24.9 % (15-50); MCH 30.3 pg (26.0-34.0); MCHC 34.1 g/dL (31.0-37.0); MCV 88.9 fL (80.0-100.0); MONOCYTES 11.4 % (2-11); NEUTROPHIL ABS# 6.74 10x3/uL (1.78-5.38); NEUTROPHILS 60.6 % (40-80); PLATELET COUNT 345 10x3/uL (130-400); RBC 4.06 10x6/uL (4.20-6.10); RDW 14.2 % (11.5-14.5); WBC 11.1 10x3/uL (4.8-10.8)
[2021-02-10 04:25] LABS: ALBUMIN 2.5 g/dL (3.4-5.0); ALKALINE PHOSPHATASE 100 U/L (30-120); ALT (SGPT) 16 U/L (10-68); CALC OSMOLALITY 278 mosm/kg (275-300); CALCIUM 8.1 mg/dL (8.5-10.1); CHLORIDE - SERUM 105 mmol/L (98-107); MAGNESIUM - SERUM 1.5 mg/dL (1.8-2.4); POTASSIUM - SERUM 3.7 mmol/L (3.5-5.1); PROTEIN - SERUM 6.7 g/dL (6.4-8.2); SODIUM 137 mmol/L (136-145); UREA NITROGEN 17 mg/dL (7-18); eGFR NON AFRICAN AMERICAN 80 mL/min (90-120)
[2021-02-10 04:34] LABS: GLUCOSE 156 mg/dL (74-106)
--- NOTE | 2021-02-10 06:46 | NUR ---
Patient rested very well and has tolerated titration of levo well. Last aptt resulted as 44. Next blood draw has been sceduled for 1000.
--- NOTE | 2021-02-10 08:55 | NUR ---
BP CUFF MOVED TO RLE S/T BILATERALLY SUBCLAVIAN ARTERIAL STENOSIS. BP WDL AND LEVO WAS MOVED TO 3 FROM 4. NOW WAS READING 70S/80S SYSTOLIC. WOKE HIM UP AND ASKED HIM TO STRAIGHTEN HIS LEG AND SBP WAS 98.
[2021-02-10 10:24] LABS: BASOPHILS 0.4 % (0-2); EOSINOPHILS 2.1 % (0-7); HEMATOCRIT 34.4 % (42.0-54.0); HEMOGLOBIN 11.7 g/dL (13.5-17.5); IMMATURE GRANULOCYTES 0.2 % (0-5); LYMPHOCYTE ABS# 1.47 10x3/uL (1.32-3.57); MCH 30.5 pg (26.0-34.0); MCV 89.6 fL (80.0-100.0); MEAN PLATELET VOLUME 9.7 fL (7.4-10.4); MONOCYTES 8.8 % (2-11); NEUTROPHIL ABS# 7.84 10x3/uL (1.78-5.38); NEUTROPHILS 74.5 % (40-80); PLATELET COUNT 326 10x3/uL (130-400); RBC 3.84 10x6/uL (4.20-6.10); RDW 14.2 % (11.5-14.5); WBC 10.5 10x3/uL (4.8-10.8)
--- NOTE | 2021-02-10 10:26 | NUR ---
ORDER FOR HEART CATH TOMORROW NOTED. CONSENT OBTAINED. WILL KEEP ON REGULAR DIET AND MAKE NPO AFTER MN.
[2021-02-10 10:45] LABS: ANION GAP 13.8 mmol/L (8-16); CALCIUM 7.9 mg/dL (8.5-10.1); CARBON DIOXIDE 22.1 mmol/L (21.0-32.0); CHOL - HDL RATIO 4.8 ratio (2.3-4.9); CREATININE - SERUM 1.2 mg/dL (0.6-1.3); LDL-HDL RATIO 2.9 ratio (1.5-3.5); POTASSIUM - SERUM 3.9 mmol/L (3.5-5.1)
--- NOTE | 2021-02-10 11:39 | NUR ---
GROINS AND R RADIAL SITE PREPPED PER ORDER.
--- NOTE | 2021-02-10 13:14 | NUR ---
DR. MARIELA SHAHID. NO ORDERS RECEIVED.
--- NOTE | 2021-02-10 21:07 | NUR ---
PATIENT IS RESTING WELL AND WATCHING T.V.
[2021-02-11] VITALS (15 sets, daily range): BP systolic 85–128; BP diastolic 40–77
--- NOTE | 2021-02-11 00:25 | NUR ---
Patient was having issues sleeping. Received an order for ambien to help with rest.
--- NOTE | 2021-02-11 00:26 | NUR ---
Called lab due to APTT not having been drawn at scheduled time. Will adjust rate at needed once results populate.
--- NOTE | 2021-02-11 01:19 | NUR ---
CALLED LAB ABOUT LAB RESULTS AND SPOKE TO MALA. HE STATED THAT SOMEONE PUT THE RESULTS UNDER THE INCORRECT TIME. THE ISSUE IS NOW FIXED AND RESULTS INDICATE THAT THE PATIENT IS THERAPEUTIC . APTT 71.3.
[2021-02-11 04:27] LABS: BASOPHILS 0.3 % (0-2); EOSINOPHILS 2.6 % (0-7); HEMOGLOBIN 11.6 g/dL (13.5-17.5); IMMATURE GRANULOCYTES 0.3 % (0-5); LYMPHOCYTE ABS# 2.32 10x3/uL (1.32-3.57); MCH 30.4 pg (26.0-34.0); MCHC 34.1 g/dL (31.0-37.0); MCV 89.2 fL (80.0-100.0); MEAN PLATELET VOLUME 9.5 fL (7.4-10.4); MONOCYTES 7.7 % (2-11); NEUTROPHIL ABS# 6.67 10x3/uL (1.78-5.38); NEUTROPHILS 66.1 % (40-80); PLATELET COUNT 308 10x3/uL (130-400); RBC 3.81 10x6/uL (4.20-6.10); RDW 14.5 % (11.5-14.5); WBC 10.1 10x3/uL (4.8-10.8)
[2021-02-11 04:47] LABS: ALBUMIN 2.3 g/dL (3.4-5.0); ALKALINE PHOSPHATASE 88 U/L (30-120); ALT (SGPT) 14 U/L (10-68); BILIRUBIN - TOTAL 0.11 mg/dL (0.2-1.3); CALC OSMOLALITY 283 mosm/kg (275-300); CALCIUM 8.4 mg/dL (8.5-10.1); CHLORIDE - SERUM 108 mmol/L (98-107); MAGNESIUM - SERUM 1.6 mg/dL (1.8-2.4); POTASSIUM - SERUM 3.7 mmol/L (3.5-5.1); PROTEIN - SERUM 6.4 g/dL (6.4-8.2); SODIUM 140 mmol/L (136-145); UREA NITROGEN 12 mg/dL (7-18); eGFR NON AFRICAN AMERICAN 80 mL/min (90-120)
[2021-02-11 04:50] LABS: GLUCOSE 197 mg/dL (74-106)
[2021-02-11 08:12] LABS: APTT 71.3 SECONDS (22.8-39.4); INR 1.04 (0.85-1.17); PROTIME 12.6 SECONDS (11.6-15.0)
--- NOTE | 2021-02-11 09:40 | NUR ---
[facility] TEAM AT BEDSIDE TO TAKE PT TO [facility]
--- NOTE | 2021-02-11 10:32 | NUR ---
Nutrition follow-up: NPO for heart cath today PO intake of consistent CHO diet has been 100% of all meals Labs reviewed; glucose still high Wt: 137# PO intake has been good at meals. Will provide DM diet education before discharge Follow-up: 02/13/21
--- NOTE | 2021-02-11 12:40 | NUR ---
PT RECEIVED FROM REMARKETING MANAGER VSS UPON TRANSFER. L GROIN SITE CDI NO HEMATOMA BRUISING OR SWELLING NOTED. PT A/O X4 STATES UNDESTANDING TO LIE FLAT AT THIS TIME DENIES FURTHER NEEDS. RSTING COMFORTABLY
--- NOTE | 2021-02-11 13:07 | NUR ---
OT NOTE: PT GONE TO LAND ACQUISITION ANALYST.. WILL RE ATTEMPT OT EVAL TOMORROW. THANK YOU WILIAN WHATLEY, OTR/L
--- NOTE | 2021-02-11 13:10 | NUR ---
PT GIVEN SANWICH TRAY PER REQUEST. DENIES NEEDS.
--- NOTE | 2021-02-11 14:10 | NUR ---
DR SINCLAIR AT BEDSIDE. PT GIVEN UPDATE.
--- NOTE | 2021-02-11 15:00 | NUR ---
CATH SITE CDI NO HEMATOMA BRUISING OR BLEEDING NOTED. PT ASSISTED UP TO SIDE OF BED WITHOUT ISSUES. DENIES FURTHER NEEDS.
--- NOTE | 2021-02-11 18:20 | NUR ---
RECIEVED PATIENT FROM ICU VIA WHEELCHAIR AT THIS TIME AND ADMITTED TO ROOM 2136. PATIENT ALERT/ORIENTED. ASSISTED OUT OF CHAIR TO CHAIR AT BEDSIDE. PM MEAL BEING CONSUMED AT THIS TIME. CALL LIGHT WITHIN REACH. TRANSFER ORDERS ACKNOWLEDGED. NO DISTRESS.
--- NOTE | 2021-02-11 23:30 | NUR ---
PT LAYING IN BED ON RIGHT SIDE. PT IS ALERT AND ORIENTED. PT DENIES PAIN AT THIS TIME. PT ON ROOM AIR AND DENIES SOB AT THIS TIME. CATH SITE INTACT. IV IN LEFT FOREARM REMOVED DUE TO PAIN. RIGHT FOREARM IV INTACT WITH FLUIDS RUNNING ORDERED. PT TO BE NPO AT MIDNIGHT AND VERBALIZED UNDERSTANDING. PT SON CALLED AT 2029 AND WAS UPDATED ON PLAN OF CARE. BS 187 NOT TREATED PER PT REQUEST AND NPO STATUS. WILL CONTINUE TO MONITOR PT.
[2021-02-12] VITALS: BP 103/47
[2021-02-12 04:00] VITALS: BP 109/73
[2021-02-12 05:56] LABS: BASOPHILS 0.2 % (0-2); EOSINOPHILS 2.1 % (0-7); HEMATOCRIT 34.3 % (42.0-54.0); HEMOGLOBIN 11.4 g/dL (13.5-17.5); IMMATURE GRANULOCYTES 0.2 % (0-5); LYMPHOCYTE ABS# 1.45 10x3/uL (1.32-3.57); LYMPHOCYTES 12.1 % (15-50); MCH 30.2 pg (26.0-34.0); MCHC 33.2 g/dL (31.0-37.0); MCV 90.7 fL (80.0-100.0); MONOCYTES 11.7 % (2-11); NEUTROPHIL ABS# 8.85 10x3/uL (1.78-5.38); NEUTROPHILS 73.7 % (40-80); PLATELET COUNT 322 10x3/uL (130-400); RBC 3.78 10x6/uL (4.20-6.10); RDW 14.7 % (11.5-14.5)
[2021-02-12 06:13] LABS: ALBUMIN 2.4 g/dL (3.4-5.0); ANION GAP 15.5 mmol/L (8-16); BILIRUBIN - TOTAL 0.1 mg/dL (0.2-1.3); CALCIUM 8.5 mg/dL (8.5-10.1); CARBON DIOXIDE 22.3 mmol/L (21.0-32.0); CREATININE - SERUM 1.1 mg/dL (0.6-1.3); MAGNESIUM - SERUM 1.8 mg/dL (1.8-2.4); POTASSIUM - SERUM 3.8 mmol/L (3.5-5.1); PROTEIN - SERUM 6.5 g/dL (6.4-8.2)
--- NOTE | 2021-02-12 07:13 | NUR ---
RECEIVE SHIFT REPORT. RESTING IN BED WITH TV ON. DENIES ANY NEEDS AT THIS TIME. STATES HE HAS NOT EATEN SINCE LUNCH 02/11/21. SEEING NO REASON TO BE NPO UNTIL TONIGHT AFTER MIDNIGHT. WILL FOLLOW UP WITH MD AND SEE IF PATIENT CAN EAT. CONTINUE POC AND SAFETY PRECAUTIONS.
--- NOTE | 2021-02-12 08:00 | NUR ---
SPOKE WITH DR. CLEMENT ABOUT HEPARIN DRIP AND IF IT WAS SUPPOSED TO BE GOING. STATED IT WAS NO LONGER NEEDED.
--- NOTE | 2021-02-12 08:47 | CN ---
PATIENT NAME:CSOTA ADAMS MEDICAL RECORD: [id number] : 57 LOCATION:D. D.2136 ADMIT DATE: 02/07/21 ACCOUNT: [id number] CONSULTING PHYSICIAN: CAMILLA CLEMENT MD REFERRING PHYSICIAN: FRANCIE LAINEZ MD DATE OF CONSULTATION: 02/10/2021 HISTORY OF PRESENT ILLNESS: A 65-year-old gentleman with systemic vasculopathy, with cerebrovascular disease as well as peripheral vascular disease, ongoing smoking, diabetes mellitus, reports previous history of intervention to the heart, although he is not sure exactly what at this point, presented to the ER with a near syncopal episode, found to have cerebrovascular disease as described above. He also reports marked chest tightness and pressure with exertion, some wheezing. He stopped all of his medications some time ago. We are asked to see him concerning his cardiovascular status. PAST MEDICAL HISTORY: Includes: 1. History of hypertension. 2. Hyperlipidemia. 3. Coronary artery disease. 4. Diabetes mellitus. 5. History of obstructive pulmonary disease. MEDICATIONS: Prior to admission included Glucophage 1 gram b.i.d. and aspirin daily and mag oxide. SOCIAL HISTORY: Smokes at least a pack a day, nondrinker, was having some difficulty with his ADLs due to overall malaise and fatigue as of late. ALLERGIES: None known. REVIEW OF SYSTEMS: The patient reports easy bruising but reports no swollen glands. The patient reports no fever, no night sweats, no significant weight gain, no significant weight loss. No significant exercise tolerance. The patient reports no dry eyes, no irritation, no vision change. Patient reports no difficulty hearing and no ear pain. Patient reports no frequent nose bleeds or nose and sinus problems. Patient reports on arm pain on exertion. No shortness of breath while lying down. No history of heart murmur. Patient reports no cough, no wheezing or coughing up blood. Patient reports no abdominal pain, no vomiting. Normal appetite. No diarrhea and not vomiting blood. No nausea and no constipation. Patient reports no incontinence. No difficulty urinating. No hematuria. No increased frequency. Patient reports no muscle aches. No weakness, no arthralgias, no back pain. No swelling of the extremities. Patient reports no abnormal mole, no jaundice, no rashes. Reports no loss of consciousness. No weakness and no numbness. No seizures, dizziness, or headaches. The patient reports no depression, no sleep disturbance, feeling safe in a relationship and no alcohol abuse. Patient reports on fatigue. Reports no runny nose or sinus pressure. No itching, no hives, and no frequent sneezing. PHYSICAL EXAMINATION: GENERAL: Chronically ill-appearing, in no acute distress. VITAL SIGNS: Blood pressure 88/70, pulse 75 and regular. HEENT: Normocephalic, atraumatic. NECK: Bilateral carotid bruits. CONSULT REPORT [id number] COSTA ADAMS HEART: Regular. II/ systolic ejection murmur. LUNGS: Prolonged expiratory phase with few expiratory wheezes. ABDOMEN: Soft, nontender. EXTREMITIES: Pulses are 2+. No edema. IMPRESSION: Systemic vasculopathy, symptomatology certainly consistent with exertional angina with multiple risk factors. PLAN: For angiography, intervention based on the above. TRANSINT:[id number] Voice Confirmation ID: [id number] DOCUMENT ID: [id number] CAMILLA CLEMENT MD at 0847 CC: [id number] DICTATION DATE: 02/10/21 1021 TECH ED/WOODSHOP TEACHER: 02/10/[address] [facility] [address] [place] [address]
[2021-02-12 08:57] VITALS: BP 121/99
[2021-02-12 12:38] VITALS: BP 70/46
[2021-02-12 15:42] VITALS: BP 78/52
[2021-02-12 20:00] VITALS: BP 122/53
[2021-02-13] VITALS (14 sets, daily range): BP systolic 90–136; BP diastolic 36–80
[2021-02-13 06:44] LABS: BASOPHILS 0.1 % (0-2); EOSINOPHILS 0.5 % (0-7); HEMATOCRIT 30.5 % (42.0-54.0); IMMATURE GRANULOCYTES 0.3 % (0-5); LYMPHOCYTE ABS# 1.31 10x3/uL (1.32-3.57); LYMPHOCYTES 8.7 % (15-50); MCH 30.2 pg (26.0-34.0); MCHC 32.8 g/dL (31.0-37.0); MCV 92.1 fL (80.0-100.0); MONOCYTES 14.6 % (2-11); NEUTROPHIL ABS# 11.37 10x3/uL (1.78-5.38); NEUTROPHILS 75.8 % (40-80); PLATELET COUNT 282 10x3/uL (130-400); RBC 3.31 10x6/uL (4.20-6.10); RDW 14.8 % (11.5-14.5)
[2021-02-13 06:50] LABS: ANION GAP 15.3 mmol/L (8-16); BILIRUBIN - TOTAL 0.19 mg/dL (0.2-1.3); CALCIUM 7.2 mg/dL (8.5-10.1); CARBON DIOXIDE 20.4 mmol/L (21.0-32.0); CREATININE - SERUM 1.1 mg/dL (0.6-1.3); POTASSIUM - SERUM 3.7 mmol/L (3.5-5.1); PROTEIN - SERUM 5.2 g/dL (6.4-8.2)
--- NOTE | 2021-02-13 07:00 | NUR ---
PT LYING IN BED. RESP EVEN AND UNLABORED. AAOX4. PT REMAINS NPO FOR SCHEDULED PROCEDURE TODAY. DENIES NEEDS AT THIS TIME. CLIR. BED IN LOWEST POSITION. SIDE RAILSX2
[2021-02-13 07:10] LABS: INR 1.18 (0.85-1.17); PROTIME 13.9 SECONDS (11.6-15.0)
[2021-02-13 07:11] LABS: APTT 36.3 SECONDS (22.8-39.4)
--- NOTE | 2021-02-13 10:20 | NUR ---
PT LEFT UNIT FOR PROCEDURE ACCOMPANIED BY HOSPITAL STAFF
--- NOTE | 2021-02-13 12:20 | NUR ---
PT RETURNED TO UNIT FROM PROCEDURE. RESTING QUIETLY. RAISES TO VERBAL STIMULI. VS WNL. DRESSING TO RIGHT GROIN C/D/I. NO BRUISING NOTED. BILATERAL PEDAL PULSES PALPABLE. INSTRUCTED TO LIE FLAT FOR FOUR HOURS POST PROCEDURE. PT VERBALIZED UNDERSTANDING. CLIR. BED IN LOWEST POSITION. SIDE RAILS X2
--- NOTE | 2021-02-13 13:29 | NUR ---
Nutrition Follow-up: NPO for arteriogram. Reports good PO intake otherwise. Denies N/V. Unsure of last BM. Edentulous. Wt: 197# (02/11); 137.4# (02/10) - large discrepancy - need new wt Labs noted: Glu 173, Ca 7.2, Alb 2.0 Meds noted: Protonix, Humulin, NS @ 125, electrolyte protocol -Resume diet when medically feasible; will need dental soft. -Discussed limiting carbs/concentrated sweets; handout provided. -Need new wt. -RD will follow up within 5-7 days.
--- NOTE | 2021-02-13 15:30 | NUR ---
HOLD PER NSG PATIENT WAS IN SURGRY
--- NOTE | 2021-02-13 17:39 | NUR ---
OT NOTE: PT ON HOLD PER NURSING SECONDARY TO PROCEDURE.
[2021-02-13 18:23] LABS: HEMATOCRIT 32.5 % (42.0-54.0); HEMOGLOBIN 11.1 g/dL (13.5-17.5)
--- NOTE | 2021-02-13 18:40 | NUR ---
pt awake, alert lying in bed continous pulse ox in place to forehead o2 sat mid to upper 90s with 2 L NC on. pt denies any issues, dressings to jose parikh cdi, UA collected. pt with no acute distress BP noted low, this has been ongoing per day shift nurse pt completed 500cc bolus a short time ago. No acute distress call light in reach will continue to monitor
--- NOTE | 2021-02-13 19:25 | NUR ---
notified BROOM BUILDER of pt with low grade temp, 100.2 no new orders at this time, will continue to monitor
[2021-02-13 19:30] LABS: BACTERIA MANY HPF (NONE SEEN); BILIRUBIN NEGATIVE (NEGATIVE); KETONE NEGATIVE (NEGATIVE); NITRITE NEGATIVE (NEGATIVE); UROBILINOGEN NORMAL mg/dL (< 2); WHITE CELLS - URINE >50 HPF (0-1)
[2021-02-14 00:21] VITALS: BP 106/54
--- NOTE | 2021-02-14 00:22 | NUR ---
o2 sat 98-100% hr 98-106 bp taken with manual cuff to LLE difficult to hear, finally able to hear 106/54. Pt appears aleep, awakens to voice and touch falls back to sleep. dressing to bilat groin CDI, pedal pulses weak bilat, which is the same as at beginning of shift and in report from day shift. no acute distress will continue to monitor
[2021-02-14 07:18] LABS: BASOPHILS 0.2 % (0-2); EOSINOPHILS 0.5 % (0-7); HEMATOCRIT 32.9 % (42.0-54.0); IMMATURE GRANULOCYTES 0.4 % (0-5); LYMPHOCYTE ABS# 1.37 10x3/uL (1.32-3.57); LYMPHOCYTES 8.2 % (15-50); MCH 30.3 pg (26.0-34.0); MCHC 33.4 g/dL (31.0-37.0); MCV 90.6 fL (80.0-100.0); MEAN PLATELET VOLUME 10.3 fL (7.4-10.4); MONOCYTES 14.9 % (2-11); NEUTROPHILS 75.8 % (40-80); PLATELET COUNT 310 10x3/uL (130-400); RBC 3.63 10x6/uL (4.20-6.10); RDW 14.7 % (11.5-14.5); WBC 16.7 10x3/uL (4.8-10.8)
[2021-02-14 07:34] LABS: ALBUMIN 2.1 g/dL (3.4-5.0); ANION GAP 15.8 mmol/L (8-16); BILIRUBIN - TOTAL 0.33 mg/dL (0.2-1.3); CALCIUM 8.3 mg/dL (8.5-10.1); CARBON DIOXIDE 21.3 mmol/L (21.0-32.0); CREATININE - SERUM 1.2 mg/dL (0.6-1.3); POTASSIUM - SERUM 4.1 mmol/L (3.5-5.1)
[2021-02-14 09:36] VITALS: BP 132/61
--- NOTE | 2021-02-14 09:58 | NUR ---
PATIENT AAOX4, RESP EVEN AND NON LABORED, NO S/S OF DISTRESS, MEDICATIONS ADMINSITERED WITH NO COMPLICATIONS, UA COLLECTED, NO FURTHER NEEDS AT THIS TIME, CLIR, BLP
--- NOTE | 2021-02-14 12:05 | NUR ---
PATIENT BROWN IN PLACE AND ABILIO CARE PERFOMED, NO FURTHER NEEDS AT THIS TIME, JOSHUA, SHARMINP
--- NOTE | 2021-02-14 13:36 | MORECARE ---
CASE MANAGEMENT DISCHARGE SUMMARY PATIENT: COSTA ADAMS UNIT: [id number] ADM DATE: 02/07/21 AGE: 65 : 57 SEX: M [facility] AUTHOR: CLARIBEL SANTACRUZ PHYSICIAN: REFERRING PHYSICIAN: FRANCIE LAINEZ MD DATE OF SERVICE: 02/14/21 Case Management Discharge Planning Summary DCP REVIEW SUMMARY ANTICIPATED D/C DATE: EXPECTED LOS : CASE STATUS: DCP Initiated INITIAL REVIEW: 02/07/2021 INITIAL REVIEWER: Annette Arthur FINAL DISCHARGE DISPOSITION: : FINAL REVIEWER: FINAL REVIEW DATE: DCP Focus Questions & Answers QUESTION: ANSWER : PATIENT: COSTA ADAMS ENCOUNTER: [id number] MEDICAL RECORD#: [id number] ADMISSION DATE: 02/07/2021 DISCHARGE DATE: ATTENDING MD: FRANCIE FATIMA : AGE: 65 MARITAL STATUS: U DC PLAN ID: [id number] FACILITY: [facility] PRINTED ON: 02/14/21 13:36 CT All edits/amendments must be made on the electronic document DICTATION DATE: 02/14/21 133 PELLETIZER: DM 02/14/21 1336 RPT#: [id number] DC DATE: STATUS: ADM IN [facility] [address] [place] [address] END OF REPORT
--- NOTE | 2021-02-14 13:49 | MORECARE ---
CASE MANAGEMENT DISCHARGE SUMMARY PATIENT: COSTA ADAMS UNIT: [id number] ADM DATE: 02/07/21 AGE: 65 : 56 SEX: M ROOM/BED: D.[facility]6 AUTHOR: NEETA,DOC PHYSICIAN: REFERRING PHYSICIAN: FRANCIE LAINEZ MD DATE OF SERVICE: 02/14/21 Case Management Discharge Planning Summary COMMENTS ENTERED DATE: 02/14/21 13:34 CT COMMENT TYPE: Discharge Planning REVIEWER: Annette Arthur CM received notification from Leticia that she would like patient to transfer to [facility]. I spoke with the patient and he agrees with transfer. He has seen a CV surgeon there before (Juanjose Lyon). I called Yas, supervisor fitting, and she okay's transfer. I called [facility], and spoke with Kaylin. She asks me to call medical exchange, I did that and gave them Dr. Maddox number. She states Dr. Handy Leal will contact Dr. Maddox. I have informed Leticia. I informed charge nurse, Giana, that she would also need to do a COBRA form. CM will continue to follow and assist with discharge planning/needs. DCP REVIEW SUMMARY ANTICIPATED D/C DATE: EXPECTED LOS : CASE STATUS: DCP Initiated INITIAL REVIEW: 02/07/2021 INITIAL REVIEWER: Annette Arthur FINAL DISCHARGE DISPOSITION: : FINAL REVIEWER: FINAL REVIEW DATE: DCP Focus Questions & Answers QUESTION: ANSWER : PATIENT: COSTA ADAMS ENCOUNTER: [id number] MEDICAL RECORD#: [id number] ADMISSION DATE: 02/07/2021 DISCHARGE DATE: ATTENDING MD: FRANCIE FATIMA : AGE: 65 MARITAL STATUS: U DC PLAN ID: [id number] FACILITY: [facility] PRINTED ON: 02/14/21 13:49 CT All edits/amendments must be made on the electronic document DICTATION DATE: 02/14/211348 SLIP PRESSER: KINGSTON 02/14/211348 RPT#: [id number] DC DATE: STATUS: ADM IN [facility] [address] [place] [address] END OF REPORT
--- NOTE | 2021-02-14 14:27 | NUR ---
WALKED 250 FT WITH A CANE MIN ASSIT
--- NOTE | 2021-02-14 14:52 | NUR ---
I have reviewed this patient and I concur with the Shift Assessment completed by the Licensed Practical Nurse today this shift.
[2021-02-14] MEDS ORDERED: TESSALON PERLE100 MG PO (16:51)
[2021-02-14] MEDS ORDERED: AMBIEN5 MG PO (16:51)
[2021-02-14] MEDS ORDERED: ROCEPHIN 1 GM/D51 G1 IV (16:51)
[2021-02-14] MEDS ORDERED: PLAVIX75 MG PO (16:51)
[2021-02-14] MEDS ORDERED: LOW DOSE ASPIRI81 M1 PO (16:51)
[2021-02-14] MEDS ORDERED: IPRAT-ALBUT 0.5-3 ML UPD (16:51)
[2021-02-14] MEDS ORDERED: NICODERM CQ1 EAC3 TRANSDERM (16:51)
[2021-02-14] MEDS ORDERED: HUMULIN R100 UNIT/1 SC (16:52)
[2021-02-14] MEDS ORDERED: MUCINEX DM ER1 EAC1 PO (16:52)
[2021-02-14] MEDS ORDERED: MUPIROCIN22 GM NASAL (16:52)
[2021-02-14] MEDS ORDERED: PROTONIX40 MG PO (16:52)
[2021-02-14] MEDS ORDERED: FLORAJEN3 CAPS460 MG PO (16:52)
--- NOTE | 2021-02-14 17:25 | MORECARE ---
CASE MANAGEMENT DISCHARGE SUMMARY PATIENT: COSTA ADAMS UNIT: [id number] ADM DATE: 02/07/21 AGE: 65 : 56 SEX: M ROOM/BED: D.2136 AUTHOR: CLARIBEL SANTACRUZ PHYSICIAN: REFERRING PHYSICIAN: FRANCIE LAINEZ MD DATE OF SERVICE: 02/14/21 Case Management Discharge Planning Summary COMMENTS ENTERED DATE: 02/14/21 17:15 CT COMMENT TYPE: Discharge Planning REVIEWER: Annette Arthur CM received a call from Leticia Burrell that Dr. Handy Leal has accepted the patient. I have called radiology to have films on disc. Giana notified of acceptance. ENTERED DATE: 02/14/21 13:34 CT COMMENT TYPE: Discharge Planning REVIEWER: Annette Arthur CM received notification from Leticia that she would like patient to transfer to [facility]. I spoke with the patient and he agrees with transfer. He has seen a CV surgeon there before (Juanjose Lyno). I called Yas, supervisor cereal, and she okay's transfer. I called [facility], and spoke with Kaylin. She asks me to call medical exchange, I did that and gave them Dr. Maddox number. She states Dr. Handy Leal will contact Dr. Maddox. I have informed Leticia. I informed charge nurse, Giana, that she would also need to do a COBRA form. CM will continue to follow and assist with discharge planning/needs. DCP REVIEW SUMMARY ANTICIPATED D/C DATE: EXPECTED LOS : CASE STATUS: DCP Initiated INITIAL REVIEW: 02/07/2021 INITIAL REVIEWER: Annette Arthur FINAL DISCHARGE DISPOSITION: : FINAL REVIEWER: FINAL REVIEW DATE: DCP Focus Questions & Answers QUESTION: ANSWER : PATIENT: COSTA ADAMS ENCOUNTER: [id number] MEDICAL RECORD#: [id number] ADMISSION DATE: 02/07/2021 DISCHARGE DATE: ATTENDING MD: FRANCIE FATIMA : AGE: 65 MARITAL STATUS: U DC PLAN ID: [id number] FACILITY: [facility] PRINTED ON: 02/14/21 17:24 CT All edits/amendments must be made on the electronic document DICTATION DATE: 02/14/211723 COLOR BUFFER: KINGSTON 02/14/211723 RPT#: [id number] DC DATE: STATUS: ADM IN [facility] [address] [facility] [place] [address] END OF REPORT
[2021-02-14 17:35] VITALS: BP 108/87
--- NOTE | 2021-02-14 18:50 | NUR ---
pt awake and alert daughter at bedside, pt with no s/sx distress resting quietly. will cotniue to monitor
[2021-02-14 20:46] VITALS: BP 97/54
[2021-02-15 04:21] VITALS: BP 93/56
[2021-02-15 06:42] LABS: ANION GAP 16.9 mmol/L (8-16); BILIRUBIN - TOTAL 0.2 mg/dL (0.2-1.3); CALCIUM 7.6 mg/dL (8.5-10.1); CARBON DIOXIDE 18.3 mmol/L (21.0-32.0); CREATININE - SERUM 1.2 mg/dL (0.6-1.3); POTASSIUM - SERUM 4.2 mmol/L (3.5-5.1); PROTEIN - SERUM 5.8 g/dL (6.4-8.2)
[2021-02-15 07:56] LABS: BASOPHILS 0.2 % (0-2); EOSINOPHILS 0.9 % (0-7); HEMATOCRIT 29.2 % (42.0-54.0); HEMOGLOBIN 9.9 g/dL (13.5-17.5); IMMATURE GRANULOCYTES 0.5 % (0-5); LYMPHOCYTE ABS# 1.16 10x3/uL (1.32-3.57); LYMPHOCYTES 9.4 % (15-50); MCH 30.5 pg (26.0-34.0); MCHC 33.9 g/dL (31.0-37.0); MCV 89.8 fL (80.0-100.0); MEAN PLATELET VOLUME 11.1 fL (7.4-10.4); MONOCYTES 16.6 % (2-11); NEUTROPHIL ABS# 8.97 10x3/uL (1.78-5.38); NEUTROPHILS 72.4 % (40-80); PLATELET COUNT 298 10x3/uL (130-400); RBC 3.25 10x6/uL (4.20-6.10); RDW 14.6 % (11.5-14.5)
[2021-02-15 07:57] LABS: WBC 12.4 10x3/uL (4.8-10.8)
[2021-02-15 08:37] VITALS: BP 102/48
--- NOTE | 2021-02-15 10:23 | NUR ---
PATIENT AAOX4 SITTING IN BEDSIDE CHAIR, RESP EVEN AND NON LABORED, NO S/S OF DISTRESS, MEDICATIONS ADMINISTERED WITH NO COMPLICATIONS, ICE WATER PROVIDED, IV FLUIDS INFUSING, NO FURTHER NEEDS AT THIS TIME, CORA LEWIS
[2021-02-15 12:25] VITALS: BP 117/57
--- NOTE | 2021-02-15 14:12 | NUR ---
I have reviewed this patient and I concur with the Shift Assessment completed by the Licensed Practical Nurse today this shift.
--- NOTE | 2021-02-15 14:46 | NUR ---
PATIENT STOOD WITH CGA AND WALKED IN GUY WITH MIN ASST USING CANE FOR 250 FEET.
--- NOTE | 2021-02-15 15:14 | NUR ---
OT NOTE: PT COMPLETED SIT TO STAND WITH SBA-CGA. PT COMPLETED ADL MOB WITH SBA-CGA. PT COMPLETED HAIR GROOMING WITH SETUP. PT COMPLETED FACE HYGIENE WITH SETUP. [phone] THANK YOU,GLENIS PICHARDO
--- NOTE | 2021-02-15 16:16 | MORECARE ---
CASE MANAGEMENT DISCHARGE SUMMARY PATIENT: COSTA ADAMS UNIT: [id number] ADM DATE: 02/07/21 AGE: 65 : 56 SEX: M ROOM/BED: D.2136 AUTHOR: CLARIBEL SANTACRUZ PHYSICIAN: REFERRING PHYSICIAN: FRANCIE LAINEZ MD DATE OF SERVICE: 02/15/21 Case Management Discharge Planning Summary COMMENTS ENTERED DATE: 02/14/21 17:15 CT COMMENT TYPE: Discharge Planning REVIEWER: Annette Arthur CM received a call from Leticia Burrell that Dr. Handy Leal has accepted the patient. I have called radiology to have films on disc. Giana notified of acceptance. ENTERED DATE: 02/14/21 13:34 CT COMMENT TYPE: Discharge Planning REVIEWER: Annette Arthur CM received notification from Leticia that she would like patient to transfer to [facility]. I spoke with the patient and he agrees with transfer. He has seen a CV surgeon there before (Juanjose Lyon). I called Yas, sorority supervisor, and she okay's transfer. I called [facility], and spoke with Kaylin. She asks me to call medical exchange, I did that and gave them Dr. Maddox number. She states Dr. Handy Leal will contact Dr. Maddox. I have informed Leticia. I informed charge nurse, Giana, that she would also need to do a COBRA form. CM will continue to follow and assist with discharge planning/needs. DCP REVIEW SUMMARY ANTICIPATED D/C DATE: EXPECTED LOS : CASE STATUS: DCP Initiated INITIAL REVIEW: 02/07/2021 INITIAL REVIEWER: Annette Arthur FINAL DISCHARGE DISPOSITION: : FINAL REVIEWER: FINAL REVIEW DATE: DCP Focus Questions & Answers QUESTION: ANSWER : PATIENT: COSTA ADAMS ENCOUNTER: [id number] MEDICAL RECORD#: [id number] ADMISSION DATE: 02/07/2021 DISCHARGE DATE: 02/15/2021 ATTENDING MD: FRANCIE FATIMA : AGE: 65 MARITAL STATUS: U DC PLAN ID: [id number] FACILITY: [facility] PRINTED ON: 02/15/21 16:16 CT All edits/amendments must be made on the electronic document DICTATION DATE: 02/15/211615 PSYCHOLOGY TEACHER: KINGSTON 02/15/211615 RPT#: [id number] DC DATE:02/15/21 STATUS: DIS IN [facility] [address] [place] [address] END OF REPORT
--- NOTE | 2021-02-15 19:55 | MORECARE ---
CASE MANAGEMENT DISCHARGE SUMMARY PATIENT: COSTA ADAMS UNIT: [id number] ADM DATE: 02/07/21 AGE: 65 : 57 SEX: M ROOM/BED: D.2136 AUTHOR: CLARIBEL SANTACRUZ PHYSICIAN: REFERRING PHYSICIAN: FRANCIE LAINEZ MD DATE OF SERVICE: 02/15/21 Case Management Discharge Planning Summary COMMENTS ENTERED DATE: 02/14/21 17:15 CT COMMENT TYPE: Discharge Planning REVIEWER: Annette Arhtur CM received a call from Leticia Burrell that Dr. Handy Leal has accepted the patient. I have called radiology to have films on disc. Giana notified of acceptance. ENTERED DATE: 02/14/21 13:34 CT COMMENT TYPE: Discharge Planning REVIEWER: Annette Arthur CM received notification from Leticia that she would like patient to transfer to [facility]. I spoke with the patient and he agrees with transfer. He has seen a CV surgeon there before (Juanjose Lyon). I called Yas, supervisor drapery hanging, and she okay's transfer. I called [facility], and spoke with Kaylin. She asks me to call medical exchange, I did that and gave them Dr. Maddox number. She states Dr. Handy Leal will contact Dr. Maddox. I have informed Leticia. I informed charge nurse, Giana, that she would also need to do a COBRA form. CM will continue to follow and assist with discharge planning/needs. DCP REVIEW SUMMARY ANTICIPATED D/C DATE: EXPECTED LOS : CASE STATUS: DCP Initiated INITIAL REVIEW: 02/07/2021 INITIAL REVIEWER: Annette Arthur FINAL DISCHARGE DISPOSITION: : FINAL REVIEWER: FINAL REVIEW DATE: DCP Focus Questions & Answers QUESTION: ANSWER : PATIENT: COSTA ADAMS ENCOUNTER: [id number] MEDICAL RECORD#: [id number] ADMISSION DATE: 02/07/2021 DISCHARGE DATE: 02/15/2021 ATTENDING MD: FRANCIE FATIMA : AGE: 65 MARITAL STATUS: U DC PLAN ID: [id number] FACILITY: [facility] PRINTED ON: 02/15/21 19:55 CT All edits/amendments must be made on the electronic document DICTATION DATE: 02/15/211954 PROPERTY SUPERVISOR: KINGSTON 02/15/211954 RPT#: [id number] DC DATE:02/15/21 STATUS: DIS IN [facility] [address] [place] [address] END OF REPORT
--- NOTE | 2021-02-18 11:32 | MORECARE ---
CASE MANAGEMENT DISCHARGE SUMMARY PATIENT: COSTA ADAMS UNIT: [id number] ADM DATE: 02/07/21 AGE: 65 : 57 SEX: M ROOM/BED: D.2136 AUTHOR: CLARIBEL SANTACRUZ PHYSICIAN: REFERRING PHYSICIAN: FRANCIE LAINEZ MD DATE OF SERVICE: 02/18/21 Case Management Discharge Planning Summary COMMENTS ENTERED DATE: 02/14/21 17:15 CT COMMENT TYPE: Discharge Planning REVIEWER: Annette Arthur CM received a call from Leticia Burrell that Dr. Handy Leal has accepted the patient. I have called radiology to have films on disc. Giana notified of acceptance. ENTERED DATE: 02/14/21 13:34 CT COMMENT TYPE: Discharge Planning REVIEWER: Annette Arthur CM received notification from Leticia that she would like patient to transfer to [facility]. I spoke with the patient and he agrees with transfer. He has seen a CV surgeon there before (Juanjose Lyon). I called Yas, quality assurance supervisor trim, and she okay's transfer. I called [facility], and spoke with Kaylin. She asks me to call medical exchange, I did that and gave them Dr. Maddox number. She states Dr. Handy Leal will contact Dr. Maddox. I have informed Leticia. I informed charge nurse, Giana, that she would also need to do a COBRA form. CM will continue to follow and assist with discharge planning/needs. DCP REVIEW SUMMARY ANTICIPATED D/C DATE: EXPECTED LOS : CASE STATUS: DCP Initiated INITIAL REVIEW: 02/07/2021 INITIAL REVIEWER: Annette Arthur FINAL DISCHARGE DISPOSITION: : FINAL REVIEWER: FINAL REVIEW DATE: DCP Focus Questions & Answers QUESTION: ANSWER : PATIENT: COSTA ADAMS ENCOUNTER: [id number] MEDICAL RECORD#: [id number] ADMISSION DATE: 02/07/2021 DISCHARGE DATE: 02/15/2021 ATTENDING MD: FRANCIE FATIMA : AGE: 65 MARITAL STATUS: U DC PLAN ID: [id number] FACILITY: [facility] PRINTED ON: 02/18/21 11:32 CT All edits/amendments must be made on the electronic document DICTATION DATE: 02/18/21 113 OCCUPATIONAL THERAPIST'S ASSISTANT: KINGSTON 02/18/21 113 RPT#: [id number] DC DATE:02/15/21 STATUS: DIS IN [facility] [address] [facility] [place] [address] END OF REPORT
--- NOTE | 2021-02-18 16:13 | OP ---
PATIENT NAME: COSTA ADAMS MEDICAL RECORD: [id number] :57 LOCATION:D.M2 D.2136 ADMISSION DATE:02/07/21 SURGEON: CAMILLA CLEMENT MD DATE OF OPERATION: 02/12/2021 PROCEDURE: Left heart catheterization, selective coronary angiography, left femoral artery approach. CATHETERS: A 5-Sami sheath, 5/4 left and right Piero. The procedure was well tolerated. The patient returned to the doe. Sheath removed. ExoSeal device was placed. FINDINGS: Left ventriculography in 30-degree ALVES view: Normal wall motion and normal systolic function. CORONARY ANATOMY: Left main: Left main is free of disease. LAD: Has a diffuse 67% stenosis in its mid portion. Circumflex: Has one OM, moderate size, had a tight 90% stenosis. Right coronary artery: Again has a moderate stenosis, 70% in its mid portion. Case was discussed with Dr. Spencer. We will plan for interventional radiology to assess the subclavian and carotid stenosis. PLAN: Intervention to the OM at a later date. Further recommendations based on clinical course. TRANSINT:[id number] Voice Confirmation ID: [id number] DOCUMENT ID: [id number] CAMILLA CLEMENT MD at 1613 CC: [id number] DICTATION DATE: 02/12/21 1345 DIESEL SERVICE JOURNEYMAN: 02/12/21 1815 DIS IN 02/15/21 [facility] [address] [place] [id number]
== END 2021-02-15 16:14 | disposition short-term general hospital (02) | DRG 299 ==
LOC: D.ER 11:15 → D.ICU 16:10 → D.M2 16:10
PROVIDERS: Emergency Medicine; Family Medicine; General Practice; Internal Medicine Interventional Cardiology; ADMIT Emergency Medicine; ATTEND Emergency Medicine
PROC: B3101ZZ Fluoroscopy of Thoracic Aorta using Low Osmolar Contrast (ICD-10-PCS; principal; 2021-02-13 10:30)
DX: I70.8 Atherosclerosis of other arteries (principal); I50.31 Acute diastolic (congestive) heart failure; I95.9 Hypotension, unspecified; I11.0 Hypertensive heart disease with heart failure; E78.5 Hyperlipidemia, unspecified; I25.10 Atherosclerotic heart disease of native coronary artery without angina pectoris; R33.9 Retention of urine, unspecified; E11.51 Type 2 diabetes mellitus with diabetic peripheral angiopathy without gangrene; R55 Syncope and collapse; I65.22 Occlusion and stenosis of left carotid artery; Z72.0 Tobacco use; D64.9 Anemia, unspecified; E83.42 Hypomagnesemia